=== PATIENT | male | born 1935 | race Asian ===

== ENCOUNTER 2016-06-24 06:34 | Day surgery (SDC) | payer MEDICARE, OTHER ==
[~2016-06-24] VITALS: Ht 160 cm; Wt 61.8 kg
[2016-06-24] MEDS ORDERED: SODIUM CHLORIDE 0.9% 1,000 ML IV ONE ×2 (06:47→07:00)
[2016-06-24] MEDS ORDERED: LOSA1TAB36 PO (07:31)
[2016-06-24] MEDS ORDERED: EZET10 PO (07:31)
[2016-06-24] MEDS ORDERED: DEXL60CA3 PO (07:31)
[2016-06-24] MEDS ORDERED: CARV12 PO (07:31)
[2016-06-24] MEDS ORDERED: FERR-89 PO (07:31)
[2016-06-24] MEDS ORDERED: AMLO-511 PO (07:31)
[2016-06-24] MEDS ORDERED: MIDAZOLAM HCL 2 MG/2 ML VIAL ONE (07:36)
[2016-06-24] MEDS ORDERED: FentaNYL CITRATE-PF 100 MCG/2 ML VIAL ONE (07:38)
[2016-06-24] MEDS ORDERED: MethylPREDNISolone SOD SUCC 125 MG/2 ML VIAL IVP ONE (09:15)
[2016-06-24] MEDS ORDERED: MethylPREDNISolone SOD SUCC 125 MG/2 ML VIAL ONE (09:44)
[2016-06-24] MEDS ORDERED: LIDOCAINE HCL 2% 30 ML JELLY TP ONE (17:29)
[2016-06-24] MEDS ORDERED: LIDOCAINE HCL 4% 50 ML SOLUTION TP ONE (17:29)
[2016-06-24] MEDS ORDERED: BENZOCAINE 20% 50 MCG/SPRAY 57 GM TP ONE (17:29)
[2016-06-24] MEDS ORDERED: OXYGEN THERAPY IH SCH (20:00)
== END 2016-06-24 10:55 | disposition home or self-care (01) ==
LOC: EDSEX 06:34 → SURGERY 06:34
PROVIDERS: ATTEND Internal Medicine Critical Care Medicine
DX: J38.4 Edema of larynx (principal); B37.0 Candidal stomatitis; I10 Essential (primary) hypertension; I25.10 Atherosclerotic heart disease of native coronary artery without angina pectoris; M19.90 Unspecified osteoarthritis, unspecified site
CPT/HCPCS: 31623; 31624; 71010; 87015; 87070; 87101; 87205; 87220; J2250; J2930; J3010; J7030; 88108; 88312

== ENCOUNTER 2022-04-24 05:57 | Day surgery (SDC) | payer MEDICARE, MEDICAID ==
[~2022-04-24] VITALS: Ht 160 cm; Wt 59.1 kg
[~2022-04-24 05:57] MED LIST: AMLO-257 PO; CARV12 PO; DEXL60CA3 PO; EZET10TA57 PO; FERR325T27 PO; LOSA1TAB42 PO
[2022-04-24] MEDS ORDERED: LIDOCAINE 2% 11 ML JELLY TP ONE (05:58)
[2022-04-24] MEDS ORDERED: BENZOCAINE 20% 50 MCG/SPRAY 57 GM TP ONE (05:58)
[2022-04-24] MEDS ORDERED: LIDOCAINE 4% 50 ML SOLUTION TP ONE (05:58)
[2022-04-24] MEDS ORDERED: SODIUM CHLORIDE 0.9% 1,000 ML IV ONE (06:30)
[2022-04-24 06:52] LABS: COVID AG,FIA SOURCE NASAL SWAB
[2022-04-24] MEDS ORDERED: MIDAZOLAM HCL 2 MG/2 ML VIAL ONE (08:16)
[2022-04-24] MEDS ORDERED: FentaNYL CITRATE PF 100 MCG/2 ML VIAL ONE (08:16)
[2022-04-24] MEDS ORDERED: MethylPREDNISolone SOD SUCC 125 MG/2 ML VIAL IVP ONE (09:30)
[2022-04-24] MEDS ORDERED: MethylPREDNISolone SOD SUCC 125 MG/2 ML VIAL ONE (09:43)
== END 2022-04-24 12:06 | disposition home or self-care (01) ==
LOC: SURGERY 05:57
PROVIDERS: ATTEND Internal Medicine Critical Care Medicine
DX: J38.4 Edema of larynx (principal); B37.0 Candidal stomatitis; Z20.822 Contact with and (suspected) exposure to COVID-19; Z79.01 Long term (current) use of anticoagulants
CPT/HCPCS: 31623; 87101; 87220; 87070; 31624; 71045; 87015; 87426; 87206; J3010; J2250; J2930; Q9967; C9803; Z7610